=== PATIENT | female | born 1985 | race Asian ===

== ENCOUNTER 2018-04-21 09:58 | Outpatient (RCR) | payer OTHER | END 2018-05-04 | LOC: M OT 09:58 | DX: Z51.89 Encounter for other specified aftercare (principal); M25.531 Pain in right wrist | CPT/HCPCS: 97110 ==

== ENCOUNTER 2018-05-10 12:56 | Outpatient (RCR) | payer OTHER | END 2018-06-04 | LOC: M OT 12:56 | DX: Z51.89 Encounter for other specified aftercare (principal); M25.531 Pain in right wrist | CPT/HCPCS: 97110 ==

== ENCOUNTER 2019-01-20 21:10 | Emergency (ER) | payer OTHER ==
[2019-01-20] MEDS ORDERED: diphenhydrAMINE INJ 50MG/ML VIAL (J1200) IV STA (21:27)
[2019-01-20] MEDS ORDERED: PROMETHAZINE INJ 25 MG/ML VIAL (J2550) IV ONE (21:30)
[2019-01-20] MEDS ORDERED: NS 1,000 ML IV ONE (21:30)
[2019-01-20] MEDS ORDERED: MECLIZINE 25 MG TABLET PO ONE (21:30)
[2019-01-20] MEDS ORDERED: PROM50TA4 PO (23:43)
[2019-01-20] MEDS ORDERED: MECL-68 PO (23:43)
[2019-01-20 23:53] VITALS: BP 168/88
== END 2019-01-21 00:24 | disposition home or self-care (01) ==
LOC: EDBD 21:10 → M ED 21:10
DX: R42 Dizziness and giddiness (principal); Z88.8 Allergy status to other drugs, medicaments and biological substances
CPT/HCPCS: 96361; 96374; 96375; 99284; J1200